=== PATIENT | female | born 1985 | race Caucasian/White ===

== ENCOUNTER 2016-09-28 09:25 | Emergency (ER) | payer OTHER ==
[~2016-09-28] VITALS: Ht 182.9 cm; Wt 154.5 kg
[~2016-09-28 09:25] MED LIST: HYDR-3240 PO; HYDR-3241 PO; IBUP200T48 PO; IBUP200T64 PO; MELA5TAB PO
[2016-09-28 09:31] VITALS: BP 157/88
[2016-09-28] MEDS ORDERED: ASPIRIN 81 MG TABLET CHEW ONE (10:16)
[2016-09-28] MEDS ORDERED: KETOROLAC 30 MG/1 ML ONE (10:16)
[2016-09-28 10:25] LABS: BLOOD UREA NITROGEN 11 mg/dL (7-18)
[2016-09-28 10:30] LABS: IS PT STATUS REG ER OR PRE ER? YES
[2016-09-28] MEDS ORDERED: ASPIRIN 81 MG TABLET CHEW PO ONE (10:30)
[2016-09-28] MEDS ORDERED: KETOROLAC 30 MG/1 ML IM ONE (10:30)
== END 2016-09-28 12:57 | disposition home or self-care (01) ==
LOC: ED 12:06
DX: R07.89 Other chest pain (principal); I10 Essential (primary) hypertension; Z90.89 Acquired absence of other organs; Z90.49 Acquired absence of other specified parts of digestive tract
CPT/HCPCS: 36415; 71010; 80048; 82040; 82550; 84484; 85025; 93005; 96372; 99285; J1885

== ENCOUNTER 2016-11-10 12:23 | Emergency (ER) | payer OTHER ==
[~2016-11-10] VITALS: Ht 182.9 cm; Wt 157.2 kg
[2016-11-10 12:47] VITALS: BP 158/84
[2016-11-10] MEDS ORDERED: HYDROmorphone 1 MG/ML, 1ML IM PRN (14:30)
[2016-11-10 14:46] LABS: HCG UR OBC PASS
[2016-11-10] MEDS ORDERED: HYDROmorphone 1 MG/ML, 1ML ONE (14:57)
[2016-11-10] MEDS ORDERED: ONDANSETRON ODT 4 MG ONE (15:19)
[2016-11-10] MEDS ORDERED: ONDANSETRON ODT 4 MG PO PRN (15:30)
[2016-11-10] MEDS ORDERED: CEFDINIR 300 MG CAPSULE PO ONE (16:00)
== END 2016-11-10 17:05 | disposition home or self-care (01) ==
LOC: ED 15:36
DX: N80.9 Endometriosis, unspecified (principal); I11.9 Hypertensive heart disease without heart failure; I51.7 Cardiomegaly; D25.9 Leiomyoma of uterus, unspecified; Z90.49 Acquired absence of other specified parts of digestive tract
CPT/HCPCS: 81001; 81025; 87086; 93005; 96372; 99285; J1170; Q0162

== ENCOUNTER 2016-12-12 18:10 | Emergency (ER) | payer OTHER ==
[~2016-12-12] VITALS: Ht 185.4 cm; Wt 147.0 kg
[~2016-12-12 18:10] MED LIST changes: -MELA5TAB PO; +MELA5TAB19 PO
[2016-12-12] MEDS ORDERED: SODIUM CHLORIDE 0.9% 1,000ML IVBOLUS ONE (18:30)
[2016-12-12] MEDS ORDERED: ONDANSETRON 2MG/ML, 2ML IVPush ONE (18:30)
[2016-12-12] MEDS ORDERED: SODIUM CHLORIDE FLUSH 10ML SYR IVF ONE (18:30)
[2016-12-12] MEDS ORDERED: ESCI10TA10 PO (18:49)
[2016-12-12] MEDS ORDERED: PHEN37.53 PO (18:49)
[2016-12-12] MEDS ORDERED: MORPHINE SULFATE 4 MG/ML, 1ML ONE ×2 (19:03→21:47)
[2016-12-12] MEDS ORDERED: ONDANSETRON 2MG/ML, 2ML ONE (19:03)
[2016-12-12] MEDS: MORPHINE SULFATE 4 MG/ML, 1ML IVPush PRN ×2 (19:06→21:48)
[2016-12-12 19:18] LABS: ASPARTATE AMINO TRANSFERASE 110 U/L (15-37); BLOOD UREA NITROGEN 8 mg/dL (7-18)
[2016-12-12] MEDS ORDERED: OMNIPAQUE 350 MG/ML, 100ML BOTTLE ONE (21:19)
[2016-12-12 21:45] VITALS: BP 177/85
== END 2016-12-12 22:32 | disposition home or self-care (01) ==
LOC: ED 22:00
DX: R10.31 Right lower quadrant pain (principal); I10 Essential (primary) hypertension; Z90.49 Acquired absence of other specified parts of digestive tract
CPT/HCPCS: 36415; 74176; 74177; 76830; 80053; 81001; 84703; 85025; 87086; 96361; 96374; 96375; 96376; 99285; J2405; J7030; Q9967

== ENCOUNTER 2016-12-14 09:18 | Emergency (ER) | payer OTHER ==
[~2016-12-14] VITALS: Ht 182.9 cm; Wt 147.0 kg
[~2016-12-14 09:18] MED LIST changes: +ESCI10TA10 PO; +PHEN37.53 PO
[2016-12-14] MEDS ORDERED: ONDANSETRON 2MG/ML, 2ML ONE (10:22)
[2016-12-14] MEDS ORDERED: MORPHINE SULFATE 4 MG/ML, 1ML ONE (10:22)
[2016-12-14] MEDS ORDERED: MORPHINE SULFATE 4 MG/ML, 1ML IVPush PRN (10:30)
[2016-12-14] MEDS ORDERED: ONDANSETRON 2MG/ML, 2ML IVPush ONE (10:30)
[2016-12-14] MEDS ORDERED: SODIUM CHLORIDE 0.9% 1,000ML IVBOLUS ONE (10:30)
[2016-12-14 10:48] LABS: ASPARTATE AMINO TRANSFERASE 142 U/L (15-37); BLOOD UREA NITROGEN 11 mg/dL (7-18)
[2016-12-14 11:41] LABS: HCG UR OBC PASS
[2016-12-14 12:13] VITALS: BP 147/68
== END 2016-12-14 12:16 | disposition home or self-care (01) ==
LOC: ED 10:08
DX: R10.31 Right lower quadrant pain (principal); R11.2 Nausea with vomiting, unspecified; R19.7 Diarrhea, unspecified; E66.01 Morbid (severe) obesity due to excess calories; Z90.49 Acquired absence of other specified parts of digestive tract
CPT/HCPCS: 36415; 80053; 81001; 81025; 83690; 85025; 87086; 96361; 96374; 96375; 99285; J2405; J7030

== ENCOUNTER → 2016-12-21 | Outpatient (CLI) | payer OTHER | LOC: STAR 13:29 | PROVIDERS: ATTEND Obstetrics & Gynecology | DX: Z02.9 Encounter for administrative examinations, unspecified (principal) ==

== ENCOUNTER 2017-01-01 06:02 | Inpatient (IN) | payer OTHER ==
[~2017-01-01] VITALS: Ht 182.9 cm; Wt 160.8 kg
[2017-01-01] MEDS ORDERED: LACTATED RINGERS 1,000 ML IV SCH (06:39)
[2017-01-01 06:42] VITALS: BP 147/91
[2017-01-01 07:00] LABS: HCG UR OBC PASS
[2017-01-01] MEDS ORDERED: LIDOCAINE 1%, 2ML SQ PRN (07:00)
[2017-01-01] MEDS ORDERED: KETAMINE 10 MG/ML, 20ML ONE (07:18)
[2017-01-01] MEDS ORDERED: FENTANYL PF 250 MCG/5ML ONE (07:19)
[2017-01-01] MEDS ORDERED: HEPARIN 5,000 UNITS/ML, 1ML SQ STA (07:23)
[2017-01-01] MEDS ORDERED: HEPARIN 5,000 UNITS/ML, 1ML ONE (07:26)
[2017-01-01] MEDS ORDERED: DEXAMETHASONE 4 MG/ML, 1ML ONE (07:37)
[2017-01-01] MEDS ORDERED: SUCCINYLCHOLINE 20 MG/ML, 10ML ONE (07:37)
[2017-01-01] MEDS ORDERED: ONDANSETRON 2MG/ML, 2ML ONE (07:37)
[2017-01-01] MEDS ORDERED: PROPOFOL 10 MG/ML, 20ML ONE (07:37)
[2017-01-01] MEDS ORDERED: KETOROLAC 30 MG/1 ML ONE (07:37)
[2017-01-01] MEDS ORDERED: ROCURONIUM 10 MG/ML ONE (07:37)
[2017-01-01] MEDS ORDERED: CEFAZOLIN 1,000 MG ONE (07:37)
[2017-01-01] MEDS ORDERED: SUGAMMADEX 200 MG/2 ML IVPush ONE (08:30)
[2017-01-01] MEDS ORDERED: FENTANYL PF 100 MCG/2ML ONE ×2 (09:35→10:42)
[2017-01-01] MEDS ORDERED: HYDROmorphone 1 MG/ML, 1ML IV PRN (10:00)
[2017-01-01] MEDS ORDERED: MEPERIDINE/PF 25MG/0.5ML IVPush PRN (10:00)
[2017-01-01] MEDS ORDERED: hydrALAzine 20 MG/ML, 1ML IV PRN (10:00)
[2017-01-01] MEDS ORDERED: OXYcodone 5 MG/5 ML ORAL.SOL UDC PO PRN (10:00)
[2017-01-01] MEDS ORDERED: LABETALOL 5MG/ML, 20ML IV PRN (10:00)
[2017-01-01] MEDS ORDERED: PROMETHAZINE 25 MG/ML, 1ML IV PRN (10:00)
[2017-01-01] MEDS ORDERED: LABETALOL 5MG/ML, 20ML ONE (10:21)
[2017-01-01] MEDS ORDERED: OXYcodone 5 MG/5 ML ORAL.SOL UDC ONE (10:22)
[2017-01-01] MEDS ORDERED: NYSTATIN TOPICAL POWDER 15GM TP PRN (10:30)
[2017-01-01] MEDS: FENTANYL PF 100 MCG/2ML IV PRN ×3 (10:43→11:14)
[2017-01-01] MEDS ORDERED: hydrALAzine 20 MG/ML, 1ML ONE (10:51)
[2017-01-01] MEDS ORDERED: MEPERIDINE/PF 25MG/0.5ML ONE (11:32)
[2017-01-01] MEDS ORDERED: PROMETHAZINE 25 MG/ML, 1ML ONE (11:55)
[2017-01-01] MEDS ORDERED: ONDANSETRON 2MG/ML, 2ML IV PRN (13:00)
[2017-01-01] MEDS ORDERED: POTASSIUM CHLORIDE 20 MEQ in D5%-0.45% NACL 1,000 ML IV SCH (13:00)
[2017-01-01] MEDS ORDERED: INSTRUCTION SEE COMMENTS XX PRN (13:00)
[2017-01-01] MEDS ORDERED: KETOROLAC 30 MG/1 ML IV PRN (15:00)
[2017-01-01 15:30] VITALS: BP 124/53
[2017-01-01] MEDS: POTASSIUM CHLORIDE 20 MEQ in D5%-0.45% NACL 1,000 ML IV SCH ×2 (15:33→21:57)
[2017-01-01] MEDS: IBUPROFEN 600 MG TABLET PO SCH ×2 (15:35→21:01)
[2017-01-01] MEDS: SIMETHICONE 80 MG CHEW TAB PO SCH ×2 (15:35→21:01)
[2017-01-01 18:38] VITALS: BP 120/81
[2017-01-01] MEDS ORDERED: DOCUSATE 100 MG CAPSULE PO SCH (21:00)
[2017-01-01] MEDS: SENNA/DOCUSATE TABLET PO SCH (21:02)
[2017-01-01] MEDS: DOCUSATE 100 MG CAPSULE PO SCH (21:02)
[2017-01-01] MEDS: HEPARIN 5,000 UNITS/ML, 1ML SQ SCH (21:02)
[2017-01-02 00:10] VITALS: BP 101/53
[2017-01-02] MEDS: POTASSIUM CHLORIDE 20 MEQ in D5%-0.45% NACL 1,000 ML IV SCH ×4 (03:55→22:31)
[2017-01-02 04:00] VITALS: BP 90/57
[2017-01-02] MEDS: IBUPROFEN 600 MG TABLET PO SCH ×4 (05:31→20:31)
[2017-01-02] MEDS: HEPARIN 5,000 UNITS/ML, 1ML SQ SCH ×3 (05:31→20:30)
[2017-01-02 05:57] LABS: HEMATOCRIT 38.2 % (34.6-47.8); HEMOGLOBIN 12.4 g/dL (11.7-16.4)
[2017-01-02 06:11] LABS: BLOOD UREA NITROGEN 22 mg/dL (7-18)
[2017-01-02 06:16] LABS: ASPARTATE AMINO TRANSFERASE 62 U/L (15-37)
[2017-01-02] MEDS ORDERED: SODIUM CHLORIDE 0.9% 1,000ML IVBOLUS ONE (07:00)
[2017-01-02 07:31] VITALS: BP 119/78
[2017-01-02] MEDS: OXYcodone 5 MG/5 ML ORAL.SOL UDC PO PRN ×4 (09:06→22:35)
[2017-01-02] MEDS: SIMETHICONE 80 MG CHEW TAB PO SCH ×3 (09:06→20:31)
[2017-01-02] MEDS: DOCUSATE 100 MG CAPSULE PO SCH ×2 (09:07→20:31)
[2017-01-02 12:31] VITALS: BP 126/76
[2017-01-02] MEDS ORDERED: POTASSIUM CHLORIDE 20 MEQ in D5%-0.45% NACL 1,000 ML IV SCH (13:00)
[2017-01-02 19:07] VITALS: BP 110/69
[2017-01-02] MEDS: DIPHENHYDRAMINE 50 MG CAPSULE PO PRN (20:30)
[2017-01-02] MEDS: SENNA/DOCUSATE TABLET PO SCH (20:31)
[2017-01-03 01:11] VITALS: BP 128/75
[2017-01-03] MEDS: IBUPROFEN 600 MG TABLET PO SCH ×4 (05:51→20:42)
[2017-01-03] MEDS: HEPARIN 5,000 UNITS/ML, 1ML SQ SCH ×3 (05:51→20:42)
[2017-01-03 06:57] VITALS: BP 115/62
[2017-01-03 06:58] LABS: ASPARTATE AMINO TRANSFERASE 31 U/L (15-37); BLOOD UREA NITROGEN 16 mg/dL (7-18)
[2017-01-03] MEDS: POTASSIUM CHLORIDE 20 MEQ in D5%-0.45% NACL 1,000 ML IV SCH ×4 (07:55→23:47)
[2017-01-03] MEDS: OXYcodone 5 MG/5 ML ORAL.SOL UDC PO PRN ×3 (08:08→17:51)
[2017-01-03] MEDS: SIMETHICONE 80 MG CHEW TAB PO SCH ×3 (08:08→20:42)
[2017-01-03] MEDS: DOCUSATE 100 MG CAPSULE PO SCH ×2 (08:08→20:42)
[2017-01-03] MEDS: DIPHENHYDRAMINE 50 MG CAPSULE PO PRN (11:18)
[2017-01-03 13:52] VITALS: BP 128/71
[2017-01-03 18:40] VITALS: BP 127/66
[2017-01-03] MEDS: SENNA/DOCUSATE TABLET PO SCH (20:42)
[2017-01-04 01:15] VITALS: BP 122/64
[2017-01-04] MEDS: HEPARIN 5,000 UNITS/ML, 1ML SQ SCH (05:36)
[2017-01-04] MEDS: IBUPROFEN 600 MG TABLET PO SCH (05:37)
[2017-01-04 07:06] VITALS: BP 114/76
[2017-01-04] MEDS: OXYcodone 5 MG/5 ML ORAL.SOL UDC PO PRN (08:44)
[2017-01-04] MEDS ORDERED: OXYC10TA6 PO (08:44)
[2017-01-04] MEDS ORDERED: IBUP200T48 PO (08:45)
[2017-01-04] MEDS: SIMETHICONE 80 MG CHEW TAB PO SCH (08:46)
[2017-01-04] MEDS: DOCUSATE 100 MG CAPSULE PO SCH (08:46)
== END 2017-01-04 09:55 | disposition home or self-care (01) | DRG 742 ==
LOC: OUT 06:02 → 4NOR 12:26 → OUT 12:32 → 4NOR 12:32 → DCLOUNGE 01-04 09:39
PROVIDERS: ADMIT Obstetrics & Gynecology; ATTEND Obstetrics & Gynecology
PROC: 0UTC0ZZ Resection of Cervix, Open Approach (ICD-10-PCS; 2017-01-01)
PROC: 0UT00ZZ Resection of Right Ovary, Open Approach (ICD-10-PCS; 2017-01-01)
PROC: 0UT60ZZ Resection of Left Fallopian Tube, Open Approach (ICD-10-PCS; 2017-01-01)
PROC: 0UT90ZZ Resection of Uterus, Open Approach (ICD-10-PCS; principal; 2017-01-01 07:30)
DX: N80.0 Endometriosis of uterus (principal); Z68.42 Body mass index [BMI] 45.0-49.9, adult; N80.1 Endometriosis of ovary; E28.2 Polycystic ovarian syndrome; E66.01 Morbid (severe) obesity due to excess calories; I10 Essential (primary) hypertension; K76.0 Fatty (change of) liver, not elsewhere classified; Z87.440 Personal history of urinary (tract) infections; F32.9 Major depressive disorder, single episode, unspecified; R94.5 Abnormal results of liver function studies; Z90.49 Acquired absence of other specified parts of digestive tract
CPT/HCPCS: 36415; 80053; 81025; 85014; 85018; 86850; 86900; 86923; 88302; 88305; 88307; 93005; J0690; J1100; J1644; J1885; J2175; J2270; J2405; J2550; J2704; J3010; J3480; J3490; J0330; J0360; J7030; J7120

== ENCOUNTER 2017-01-30 12:49 | Inpatient (IN) | payer OTHER ==
[~2017-01-30] VITALS: Ht 182.9 cm; Wt 153.7 kg
[~2017-01-30 12:49] MED LIST changes: -AMOX1TAB64 PO; -OMNIPAQUE 350 MG/ML, 150 ML BOTTLE ONE
[2017-01-30 13:35] VITALS: BP 139/87
[2017-01-30] MEDS: morphine SULFATE 10 MG/ML, 1ML IVPush PRN (13:52)
[2017-01-30] MEDS ORDERED: PLEASE ENTER HEIGHT AND WEIGHT MC SCH ×2 (14:00→14:30)
[2017-01-30] MEDS ORDERED: PHARMACOKINETIC MONITORING MC PRN (14:30)
[2017-01-30] MEDS ORDERED: PHARMACOKINETIC CONSULTATION MC ONE (14:30)
[2017-01-30] MEDS ORDERED: GENTAMICIN PER PHARMACY MC PRN (14:30)
[2017-01-30] MEDS: D5%-0.9% NACL+KCL 20MEQ 1,000 ML IV SCH ×2 (14:44→21:29)
[2017-01-30] MEDS: AMPICILLIN 2 GM in SODIUM CHLORIDE 0.9% 100 ML IV SCH ×2 (14:44→21:28)
[2017-01-30 14:57] LABS: BLOOD UREA NITROGEN 13 mg/dL (7-18)
[2017-01-30 14:58] LABS: HEMATOCRIT 42.1 % (34.6-47.8); HEMOGLOBIN 13.7 g/dL (11.7-16.4); WHITE BLOOD COUNT 11.1 x10^3/uL (3.4-10)
[2017-01-30 15:00] LABS: ASPARTATE AMINO TRANSFERASE 48 U/L (15-37)
[2017-01-30] MEDS: CLINDAMYCIN PMX 900MG/50ML 50 ML IV SCH ×2 (15:53→23:09)
[2017-01-30] MEDS: OXYcodone IR 5MG TABLET PO PRN ×2 (15:53→20:48)
[2017-01-30] MEDS: GENTAMICIN 500 MG in SODIUM CHLORIDE 0.9% 100 ML IV SCH (17:30)
[2017-01-30] MEDS ORDERED: ONDANSETRON 2MG/ML, 2ML IVPush PRN (17:30)
[2017-01-30 19:01] VITALS: BP 141/90
[2017-01-30] MEDS: CEFTRIAXONE PMX 1GM/50ML 50 ML IV SCH (20:47)
[2017-01-30 22:44] VITALS: BP 149/82
[2017-01-30] MEDS: ZOLPIDEM 10MG TABLET PO PRN (22:44)
[2017-01-31 00:42] VITALS: BP 135/82
[2017-01-31] MEDS: morphine SULFATE 10 MG/ML, 1ML IVPush PRN ×4 (00:51→17:42)
[2017-01-31] MEDS: AMPICILLIN 2 GM in SODIUM CHLORIDE 0.9% 100 ML IV SCH ×3 (03:01→14:37)
[2017-01-31 05:11] LABS: HEMATOCRIT 37.9 % (34.6-47.8); HEMOGLOBIN 12.3 g/dL (11.7-16.4); WHITE BLOOD COUNT 10.5 x10^3/uL (3.4-10)
[2017-01-31] MEDS: CLINDAMYCIN PMX 900MG/50ML 50 ML IV SCH ×2 (06:46→17:42)
[2017-01-31] MEDS ORDERED: MIDAZOLAM 1 MG/ML, 5ML ONE (07:31)
[2017-01-31] MEDS ORDERED: NALOXONE 1 MG/ML, 2ML ONE (07:31)
[2017-01-31] MEDS ORDERED: FENTANYL PF 100 MCG/2ML ONE ×3 (07:31→18:34)
[2017-01-31] MEDS ORDERED: FLUMAZENIL 0.1 MG/1 ML, 5ML ONE (07:32)
[2017-01-31] MEDS ORDERED: LIDOCAINE 2%, 20ML ONE (07:39)
[2017-01-31 08:20] VITALS: BP 141/85
[2017-01-31] MEDS: CITALOPRAM 20 MG TABLET PO SCH (09:29)
[2017-01-31] MEDS: D5%-0.9% NACL+KCL 20MEQ 1,000 ML IV SCH (11:16)
[2017-01-31] MEDS ORDERED: EPINEPHRINE 1 MG/ML, 1ML ONE (14:06)
[2017-01-31] MEDS ORDERED: BUPIVACAINE/PF 0.25% ONE (14:06)
[2017-01-31 14:30] VITALS: BP 127/73
[2017-01-31] MEDS ORDERED: MIDAZOLAM 1 MG/ML, 2ML ONE (18:34)
[2017-01-31] MEDS ORDERED: PROPOFOL 10 MG/ML, 50ML ONE (19:02)
[2017-01-31] MEDS ORDERED: ONDANSETRON 2MG/ML, 2ML ONE (19:02)
[2017-01-31] MEDS ORDERED: KETOROLAC 30 MG/1 ML ONE (19:02)
[2017-01-31] MEDS ORDERED: DEXAMETHASONE 4 MG/ML, 1ML ONE (19:02)
[2017-01-31] MEDS ORDERED: EPHEDRINE 50 MG/ML, 1ML IVPush PRN (20:30)
[2017-01-31] MEDS ORDERED: MIDAZOLAM 1 MG/ML, 2ML IV PRN (20:30)
[2017-01-31] MEDS ORDERED: HYDROcodone/APAP 7.5-325MG/15ML UDC PO PRN (20:30)
[2017-01-31] MEDS ORDERED: ONDANSETRON 2MG/ML, 2ML IVPush PRN (20:30)
[2017-01-31] MEDS ORDERED: METOPROLOL 1 MG/ML, 5ML IV PRN (20:30)
[2017-01-31] MEDS ORDERED: FENTANYL PF 100 MCG/2ML IV PRN (20:30)
[2017-01-31] MEDS ORDERED: hydrALAzine 20 MG/ML, 1ML IV PRN (20:30)
[2017-01-31] MEDS ORDERED: PROMETHAZINE 25 MG/ML, 1ML IV PRN (20:30)
[2017-01-31] MEDS ORDERED: OXYcodone 5 MG/5 ML ORAL.SOL UDC PO PRN (20:30)
[2017-01-31] MEDS ORDERED: MEPERIDINE/PF 25MG/0.5ML IVPush PRN (20:30)
[2017-01-31] MEDS ORDERED: HYDROmorphone 1 MG/ML, 1ML IV PRN (20:30)
[2017-01-31] MEDS ORDERED: ALBUTEROL SULFATE 2.5 MG/3 ML NPPB PRN (20:30)
[2017-01-31] MEDS ORDERED: ACETAMINOPHEN 650 MG/20.3 ML UDC ONE (20:42)
[2017-01-31] MEDS ORDERED: ACETAMINOPHEN 325 MG TABLET ONE (20:42)
[2017-01-31] MEDS: LABETALOL 5MG/ML, 20ML IV PRN ×2 (20:45→21:02)
[2017-01-31] MEDS: ACETAMINOPHEN 325 MG TABLET PO PRN ×2 (20:45→20:49)
[2017-01-31] MEDS ORDERED: ZOLPIDEM 5MG TABLET PO PRN (21:00)
[2017-01-31 21:30] VITALS: BP 145/87
[2017-01-31] MEDS: GENTAMICIN 500 MG in SODIUM CHLORIDE 0.9% 100 ML IV SCH (22:10)
[2017-01-31] MEDS: POTASSIUM CHLORIDE 20 MEQ in D5%-0.45% NACL 1,000 ML IV SCH (22:30)
[2017-01-31] MEDS ORDERED: morphine SULFATE 10 MG/ML, 1ML IV PRN (22:30)
[2017-01-31] MEDS ORDERED: ONDANSETRON 2MG/ML, 2ML IV PRN (22:30)
[2017-01-31] MEDS: CEFTRIAXONE PMX 1GM/50ML 50 ML IV SCH (23:30)
[2017-01-31] MEDS: DOCUSATE 100 MG CAPSULE PO SCH (23:31)
[2017-01-31] MEDS: SENNA/DOCUSATE TABLET PO SCH (23:32)
[2017-01-31 23:47] VITALS: BP 111/65
[2017-01-31] MEDS: OXYcodone 5 MG/5 ML ORAL.SOL UDC PO PRN (23:57)
[2017-02-01] MEDS: PIPERACILLIN/TAZO/PMX 3.375GM 50 ML IV SCH ×4 (01:34→19:41)
[2017-02-01] MEDS: CLINDAMYCIN PMX 900MG/50ML 50 ML IV SCH ×3 (02:28→18:33)
[2017-02-01 03:53] VITALS: BP 128/78
[2017-02-01] MEDS: OXYcodone 5 MG/5 ML ORAL.SOL UDC PO PRN (04:02)
[2017-02-01] MEDS: POTASSIUM CHLORIDE 20 MEQ in D5%-0.45% NACL 1,000 ML IV SCH ×3 (05:14→19:42)
[2017-02-01 05:29] LABS: HEMATOCRIT 38.7 % (34.6-47.8); HEMOGLOBIN 12.6 g/dL (11.7-16.4); WHITE BLOOD COUNT 12.6 x10^3/uL (3.4-10)
[2017-02-01 05:30] LABS: BLOOD UREA NITROGEN 13 mg/dL (7-18)
[2017-02-01] MEDS: IBUPROFEN 600 MG TABLET PO SCH ×4 (06:11→21:56)
[2017-02-01 08:00] VITALS: BP 143/84
[2017-02-01] MEDS: CITALOPRAM 20 MG TABLET PO SCH (08:05)
[2017-02-01] MEDS: DOCUSATE 100 MG CAPSULE PO SCH ×2 (08:12→19:42)
[2017-02-01] MEDS: SIMETHICONE 80 MG CHEW TAB PO SCH ×3 (08:12→19:43)
[2017-02-01] MEDS: OXYcodone IR 5MG TABLET PO PRN (12:35)
[2017-02-01 14:22] VITALS: BP 122/68
[2017-02-01 18:59] VITALS: BP 147/82
[2017-02-01] MEDS: SENNA/DOCUSATE TABLET PO SCH (19:43)
[2017-02-01] MEDS: GENTAMICIN 500 MG in SODIUM CHLORIDE 0.9% 100 ML IV SCH (21:56)
[2017-02-02 01:14] VITALS: BP 133/87
[2017-02-02] MEDS: POTASSIUM CHLORIDE 20 MEQ in D5%-0.45% NACL 1,000 ML IV SCH ×4 (01:26→21:38)
[2017-02-02] MEDS: PIPERACILLIN/TAZO/PMX 3.375GM 50 ML IV SCH ×4 (01:41→20:36)
[2017-02-02] MEDS: CLINDAMYCIN PMX 900MG/50ML 50 ML IV SCH ×3 (03:37→19:18)
[2017-02-02] MEDS: IBUPROFEN 600 MG TABLET PO SCH ×4 (05:05→23:27)
[2017-02-02] MEDS: OXYcodone IR 5MG TABLET PO PRN ×2 (05:17→06:36)
[2017-02-02 05:28] LABS: HEMOGLOBIN 11.7 g/dL (11.7-16.4); WHITE BLOOD COUNT 10.6 x10^3/uL (3.4-10)
[2017-02-02 06:34] VITALS: BP 131/82
[2017-02-02] MEDS: DOCUSATE 100 MG CAPSULE PO SCH ×2 (08:17→20:37)
[2017-02-02] MEDS: CITALOPRAM 20 MG TABLET PO SCH (08:17)
[2017-02-02] MEDS: SIMETHICONE 80 MG CHEW TAB PO SCH ×3 (08:18→20:37)
[2017-02-02 14:07] VITALS: BP 135/81
[2017-02-02] MEDS: L. ACIDOPHILUS/B. ANIMALIS/FOS PACKET PO SCH ×2 (15:18→20:37)
[2017-02-02 19:19] VITALS: BP 145/83
[2017-02-02] MEDS: SENNA/DOCUSATE TABLET PO SCH (21:00)
[2017-02-02] MEDS: GENTAMICIN 500 MG in SODIUM CHLORIDE 0.9% 100 ML IV SCH (23:21)
[2017-02-02] MEDS: ZOLPIDEM 10MG TABLET PO PRN (23:21)
[2017-02-03 02:52] VITALS: BP 137/80
[2017-02-03] MEDS: PIPERACILLIN/TAZO/PMX 3.375GM 50 ML IV SCH ×2 (02:52→08:03)
[2017-02-03] MEDS: POTASSIUM CHLORIDE 20 MEQ in D5%-0.45% NACL 1,000 ML IV SCH ×2 (03:49→08:14)
[2017-02-03] MEDS: CLINDAMYCIN PMX 900MG/50ML 50 ML IV SCH ×2 (03:49→11:50)
[2017-02-03] MEDS: IBUPROFEN 600 MG TABLET PO SCH ×2 (06:45→11:52)
[2017-02-03 06:49] VITALS: BP 137/79
[2017-02-03] MEDS: DOCUSATE 100 MG CAPSULE PO SCH (08:02)
[2017-02-03] MEDS: CITALOPRAM 20 MG TABLET PO SCH (08:02)
[2017-02-03] MEDS: L. ACIDOPHILUS/B. ANIMALIS/FOS PACKET PO SCH (08:02)
[2017-02-03] MEDS: SIMETHICONE 80 MG CHEW TAB PO SCH (08:06)
[2017-02-03 11:53] VITALS: BP 149/85
[2017-02-03] MEDS ORDERED: AMOX1TAB64 PO (12:11)
== END 2017-02-03 12:35 | disposition home or self-care (01) | DRG 760 ==
LOC: 4NOR 12:49
PROVIDERS: ADMIT Obstetrics & Gynecology; ATTEND Obstetrics & Gynecology
PROC: 0UCGXZZ Extirpation of Matter from Vagina, External Approach (ICD-10-PCS; principal; 2017-01-31 17:30)
DX: N89.8 Other specified noninflammatory disorders of vagina (principal); Z68.42 Body mass index [BMI] 45.0-49.9, adult; K76.0 Fatty (change of) liver, not elsewhere classified; E66.01 Morbid (severe) obesity due to excess calories; N93.9 Abnormal uterine and vaginal bleeding, unspecified; J20.9 Acute bronchitis, unspecified; I10 Essential (primary) hypertension; F32.9 Major depressive disorder, single episode, unspecified; Z90.710 Acquired absence of both cervix and uterus; Z87.440 Personal history of urinary (tract) infections
CPT/HCPCS: 10160; 36415; 71020; 75989; 80048; 80053; 80170; 83735; 85025; 87040; 87070; 87075; 87205; 93970; 99156; 99157; J0171; J0290; J0696; J1100; J1885; J2250; J2405; J2543; J2704; J3010; J3490; C1769; J1580; J2270; J2310; J3480

== ENCOUNTER → 2017-01-30 | Outpatient (CLI) | payer OTHER ==
[~2017-01-30] MED LIST changes: +AMOX1TAB64 PO; +OMNIPAQUE 350 MG/ML, 150 ML BOTTLE ONE; +OXYC10TA6 PO
== END | disposition home or self-care (01) ==
LOC: CFH 10:08
PROVIDERS: ATTEND Obstetrics & Gynecology
DX: N73.9 Female pelvic inflammatory disease, unspecified (principal); K42.9 Umbilical hernia without obstruction or gangrene; K76.0 Fatty (change of) liver, not elsewhere classified; R16.0 Hepatomegaly, not elsewhere classified; J18.9 Pneumonia, unspecified organism; R91.8 Other nonspecific abnormal finding of lung field; Z90.710 Acquired absence of both cervix and uterus; Z98.890 Other specified postprocedural states; Z90.49 Acquired absence of other specified parts of digestive tract
CPT/HCPCS: 74177; Q9967

== ENCOUNTER 2017-02-26 12:56 | Emergency (ER) | payer OTHER ==
[~2017-02-26] VITALS: Ht 182.9 cm; Wt 151.9 kg
[~2017-02-26 12:56] MED LIST changes: +AMOX1TAB64 PO
[2017-02-26] MEDS ORDERED: SODIUM CHLORIDE FLUSH 10ML SYR IVF ONE (13:30)
[2017-02-26] MEDS ORDERED: SODIUM CHLORIDE 0.9% 1,000 ML IV ONE (13:30)
[2017-02-26] MEDS ORDERED: SODIUM CHLORIDE 0.9% 1,000ML IVBOLUS ONE (13:30)
[2017-02-26 13:45] LABS: HEMATOCRIT 45.5 % (34.6-47.8); HEMOGLOBIN 14.9 g/dL (11.7-16.4); WHITE BLOOD COUNT 9.6 x10^3/uL (3.4-10)
[2017-02-26 13:55] LABS: BLOOD UREA NITROGEN 14 mg/dL (7-18)
[2017-02-26 13:59] LABS: PATH.CAST-FLAG NOT PRESENT; SPERM-FLAG NOT PRESENT; SRC-FLAG NOT PRESENT; XTAL-FLAG NOT PRESENT; YLC-FLAG NOT PRESENT
[2017-02-26] MEDS ORDERED: KETOROLAC 30 MG/1 ML ONE (14:09)
[2017-02-26] MEDS ORDERED: KETOROLAC 30 MG/1 ML IVPush ONE (14:30)
[2017-02-26] MEDS ORDERED: MORPHINE SULFATE 4 MG/ML, 1ML ONE ×2 (15:22→16:35)
[2017-02-26] MEDS: MORPHINE SULFATE 4 MG/ML, 1ML IVPush PRN ×2 (15:31→16:37)
[2017-02-26] MEDS ORDERED: OMNIPAQUE 350 MG/ML, 100ML BOTTLE ONE (16:19)
[2017-02-26] MEDS ORDERED: ONDANSETRON 2MG/ML, 2ML ONE (16:35)
[2017-02-26] MEDS ORDERED: ONDANSETRON 2MG/ML, 2ML IVPush ONE (17:00)
[2017-02-26 17:25] VITALS: BP 133/82
== END 2017-02-26 18:08 | disposition home or self-care (01) ==
LOC: ED 13:41
DX: N30.00 Acute cystitis without hematuria (principal); I10 Essential (primary) hypertension; Z90.49 Acquired absence of other specified parts of digestive tract; Z90.710 Acquired absence of both cervix and uterus
CPT/HCPCS: 36415; 74177; 80048; 81001; 82040; 85025; 87086; 96361; 96374; 96375; 96376; 99285; J1885; J2405; J7030; Q9967

== ENCOUNTER 2017-03-18 10:55 | Emergency (ER) | payer OTHER ==
[~2017-03-18] VITALS: Ht 182.9 cm; Wt 157.4 kg
[2017-03-18] MEDS ORDERED: SODIUM CHLORIDE 0.9% 1,000ML IVBOLUS ONE (11:30)
[2017-03-18] MEDS ORDERED: MORPHINE SULFATE 4 MG/ML, 1ML IVPush PRN (11:30)
[2017-03-18] MEDS ORDERED: ONDANSETRON 2MG/ML, 2ML IVPush ONE (11:30)
[2017-03-18] MEDS ORDERED: SODIUM CHLORIDE FLUSH 10ML SYR IVF ONE (11:30)
[2017-03-18] MEDS ORDERED: morphine SULFATE 10 MG/ML, 1ML ONE (11:52)
[2017-03-18] MEDS ORDERED: ONDANSETRON 2MG/ML, 2ML ONE (11:53)
[2017-03-18 12:05] LABS: HEMATOCRIT 43.5 % (34.6-47.8); HEMOGLOBIN 14.2 g/dL (11.7-16.4); WHITE BLOOD COUNT 6.5 x10^3/uL (3.4-10)
[2017-03-18 12:19] LABS: BLOOD UREA NITROGEN 8 mg/dL (7-18)
[2017-03-18 12:26] LABS: ASPARTATE AMINO TRANSFERASE 76 U/L (15-37)
[2017-03-18 12:33] VITALS: BP 127/74
[2017-03-18] MEDS ORDERED: OMNIPAQUE 350 MG/ML, 150 ML BOTTLE ONE (13:36)
== END 2017-03-18 14:41 | disposition home or self-care (01) ==
LOC: ED 12:17
DX: R10.11 Right upper quadrant pain (principal); R10.13 Epigastric pain; I10 Essential (primary) hypertension; Z90.49 Acquired absence of other specified parts of digestive tract
CPT/HCPCS: 36415; 74177; 80053; 83690; 85025; 96361; 96374; 96375; 99285; J2405; J7030; Q9967

== ENCOUNTER 2017-03-19 21:10 | Emergency (ER) | payer OTHER ==
[~2017-03-19] VITALS: Ht 182.9 cm; Wt 157.9 kg
[2017-03-19] MEDS ORDERED: ONDANSETRON 2MG/ML, 2ML ONE (21:57)
[2017-03-19] MEDS ORDERED: morphine SULFATE 10 MG/ML, 1ML ONE (21:57)
[2017-03-19] MEDS ORDERED: MORPHINE SULFATE 4 MG/ML, 1ML IVPush PRN (22:00)
[2017-03-19] MEDS ORDERED: SODIUM CHLORIDE 0.9% 1,000ML IVBOLUS ONE (22:00)
[2017-03-19] MEDS ORDERED: SODIUM CHLORIDE FLUSH 10ML SYR IVF ONE (22:00)
[2017-03-19] MEDS ORDERED: ONDANSETRON 2MG/ML, 2ML IVPush ONE (22:00)
[2017-03-19 22:30] LABS: HEMATOCRIT 42.1 % (34.6-47.8); HEMOGLOBIN 13.6 g/dL (11.7-16.4); WHITE BLOOD COUNT 7.7 x10^3/uL (3.4-10)
[2017-03-19 22:41] LABS: BLOOD UREA NITROGEN 8 mg/dL (7-18)
[2017-03-19 22:43] LABS: ASPARTATE AMINO TRANSFERASE 70 U/L (15-37)
[2017-03-20 00:34] VITALS: BP 124/62
== END 2017-03-20 00:34 | disposition home or self-care (01) ==
LOC: ED 23:19
DX: R10.11 Right upper quadrant pain (principal); R11.2 Nausea with vomiting, unspecified; I10 Essential (primary) hypertension; Z90.710 Acquired absence of both cervix and uterus; Z90.721 Acquired absence of ovaries, unilateral
CPT/HCPCS: 36415; 76700; 80053; 81001; 83690; 85025; 93005; 96361; 96374; 96375; 99285; J2405; J7030

== ENCOUNTER 2017-04-24 10:00 | Day surgery (SDC) | payer OTHER ==
[2017-04-23 09:25] LABS: PATH.CAST-FLAG NOT PRESENT; SPERM-FLAG NOT PRESENT; SRC-FLAG NOT PRESENT; XTAL-FLAG NOT PRESENT; YLC-FLAG NOT PRESENT
[~2017-04-24] VITALS: Ht 182.9 cm; Wt 159.7 kg
[2017-04-24] MEDS ORDERED: LACTATED RINGERS 1,000 ML IV SCH (10:49)
[2017-04-24] MEDS ORDERED: CIPR500T87 PO (10:51)
[2017-04-24 10:52] VITALS: BP 147/89
[2017-04-24] MEDS ORDERED: PROPOFOL 10 MG/ML, 20ML ONE (12:57)
[2017-04-24] MEDS ORDERED: FENTANYL PF 100 MCG/2ML IV PRN (13:30)
[2017-04-24] MEDS ORDERED: ONDANSETRON 2MG/ML, 2ML IVPush PRN (13:30)
[2017-04-24] MEDS ORDERED: ACETAMINOPHEN 325 MG TABLET PO PRN (13:30)
[2017-04-24] MEDS ORDERED: ALBUTEROL SULFATE 2.5 MG/3 ML NPPB PRN (13:30)
[2017-04-24] MEDS ORDERED: HYDROmorphone 1 MG/ML, 1ML IV PRN (13:30)
[2017-04-24] MEDS ORDERED: MIDAZOLAM 1 MG/ML, 2ML IV PRN (13:30)
[2017-04-24] MEDS ORDERED: MEPERIDINE/PF 25MG/0.5ML IVPush PRN (13:30)
[2017-04-24] MEDS ORDERED: OXYcodone 5 MG/5 ML ORAL.SOL UDC PO PRN (13:30)
[2017-04-24] MEDS ORDERED: hydrALAzine 20 MG/ML, 1ML IV PRN (13:30)
[2017-04-24] MEDS ORDERED: PROMETHAZINE 25 MG/ML, 1ML IV PRN (13:30)
[2017-04-24] MEDS ORDERED: LABETALOL 5MG/ML, 20ML IV PRN (13:30)
== END 2017-04-24 14:30 | disposition home or self-care (01) ==
LOC: OUT 10:00 → EDBD 13:00 → MERGE 13:00 → OUT 14:30
PROVIDERS: ATTEND Internal Medicine Gastroenterology
DX: G89.29 Other chronic pain (principal); K31.89 Other diseases of stomach and duodenum; K21.9 Gastro-esophageal reflux disease without esophagitis; E66.01 Morbid (severe) obesity due to excess calories; Z68.42 Body mass index [BMI] 45.0-49.9, adult
CPT/HCPCS: 43239; 81001; 87077; 87086; 87186; 88305; J2704; J7120

== ENCOUNTER 2017-08-11 10:30 | Emergency (ER) | payer OTHER ==
[~2017-08-11] VITALS: Ht 182.9 cm; Wt 143.0 kg
[~2017-08-11 10:30] MED LIST changes: +CIPR500T87 PO; -IBUP200T48 PO; +IBUP200T49 PO
[2017-08-11 10:38] VITALS: BP 138/74
[2017-08-11] MEDS ORDERED: OMEP-110 PO (10:50)
[2017-08-11] MEDS ORDERED: PHEN37.53 PO (10:52)
[2017-08-11] MEDS ORDERED: ONDANSETRON 2MG/ML, 2ML IVPush ONE (11:00)
[2017-08-11] MEDS ORDERED: LORazepam 2 MG/ML, 1ML IVPush ONE (11:00)
[2017-08-11] MEDS ORDERED: PLEASE ENTER HEIGHT AND WEIGHT MC SCH (11:00)
[2017-08-11] MEDS ORDERED: SODIUM CHLORIDE FLUSH 10ML SYR IVF ONE (11:00)
[2017-08-11] MEDS ORDERED: ASPIRIN 81 MG TABLET CHEW PO ONE (11:00)
[2017-08-11] MEDS ORDERED: SODIUM CHLORIDE 0.9% 1,000ML IVBOLUS ONE (11:00)
[2017-08-11] MEDS ORDERED: ASPIRIN 81 MG TABLET CHEW ONE (11:05)
[2017-08-11 11:06] LABS: BASOPHILS # (AUTO) 0.02 x10^3/uL (0-0.1); BASOPHILS % (AUTO) 0 % (0-1); EOSINOPHILS % (AUTO) 1 % (1-7); LYMPHOCYTES # (AUTO) 1.61 x10^3/uL (1-3.4); LYMPHOCYTES % (AUTO) 12 % (22-44); MD NO; MEAN CORPUSCULAR HEMOGLOBIN 26.6 pg (27.0-34.8); MEAN CORPUSCULAR HGB CONC 32.5 g/dL (32.4-35.8); MEAN CORPUSCULAR VOLUME 81.9 fL (80-100); MEAN PLATELET VOLUME 9.9 fL (7.4-10.4); MONOCYTES # (AUTO) 0.72 x10^3/uL (0.2-0.8); MONOCYTES % (AUTO) 5 % (2-9); NEUTROPHILS # (AUTO) 11.41 x10^3/uL (1.8-6.8); NEUTROPHILS % (AUTO) 82 % (42-75); PLATELET COUNT 237 x10^3/uL (130-400); RED BLOOD COUNT 5.49 x10^6/uL (3.82-5.3); RED CELL DISTRIBUTION WIDTH 14.6 % (9.6-15.2)
[2017-08-11] MEDS ORDERED: LORazepam 2 MG/ML, 1ML ONE (11:07)
[2017-08-11] MEDS ORDERED: ONDANSETRON 2MG/ML, 2ML ONE (11:09)
[2017-08-11 11:16] LABS: ALBUMIN 3.4 g/dL (3.4-5.0); ANION GAP 8 mmol/L (5-15); CALCIUM 8.5 mg/dL (8.5-10.1); CHLORIDE 111 mmol/L (98-107); CREATININE 0.65 mg/dL (0.55-1.02)
[2017-08-11 11:20] LABS: TROPONIN I < 0.015 ng/mL (0.000-0.045)
[2017-08-11 11:49] LABS: MICROSCOPIC NOT IND
[2017-08-11 11:54] LABS: CULTURE INDICATED? NO
== END 2017-08-11 12:37 | disposition home or self-care (01) ==
LOC: ED 11:40
DX: R07.89 Other chest pain (principal); F41.1 Generalized anxiety disorder; I10 Essential (primary) hypertension; Z90.710 Acquired absence of both cervix and uterus
CPT/HCPCS: 36415; 71045; 80048; 81003; 82040; 83605; 83880; 84484; 85025; 93005; 96361; 96374; 96375; 99285; J2060; J2405; J7030

== ENCOUNTER 2017-08-15 11:37 | Emergency (ER) | payer OTHER ==
[~2017-08-15] VITALS: Ht 182.9 cm; Wt 142.9 kg
[~2017-08-15 11:37] MED LIST changes: +OMEP-110 PO
[2017-08-15 11:39] VITALS: BP 137/86
[2017-08-15] MEDS ORDERED: ASPIRIN 81 MG TABLET CHEW PO ONE (12:00)
[2017-08-15 12:22] LABS: BASOPHILS # (AUTO) 0.01 x10^3/uL (0-0.1); BASOPHILS % (AUTO) 0 % (0-1); EOSINOPHILS # (AUTO) 0.12 x10^3/uL (0-0.4); EOSINOPHILS % (AUTO) 1 % (1-7); LYMPHOCYTES # (AUTO) 2.34 x10^3/uL (1-3.4); LYMPHOCYTES % (AUTO) 22 % (22-44); MD NO; MEAN CORPUSCULAR HEMOGLOBIN 26.8 pg (27.0-34.8); MEAN CORPUSCULAR HGB CONC 32.6 g/dL (32.4-35.8); MEAN PLATELET VOLUME 9.6 fL (7.4-10.4); MONOCYTES # (AUTO) 0.59 x10^3/uL (0.2-0.8); MONOCYTES % (AUTO) 5 % (2-9); NEUTROPHILS # (AUTO) 7.83 x10^3/uL (1.8-6.8); NEUTROPHILS % (AUTO) 72 % (42-75); PLATELET COUNT 285 x10^3/uL (130-400); RED BLOOD COUNT 6.14 x10^6/uL (3.82-5.3); RED CELL DISTRIBUTION WIDTH 15.1 % (9.6-15.2)
[2017-08-15 12:30] LABS: ALBUMIN 3.9 g/dL (3.4-5.0); ANION GAP 9 mmol/L (5-15); CALCIUM 9.6 mg/dL (8.5-10.1); CHLORIDE 107 mmol/L (98-107)
[2017-08-15 12:37] LABS: ALANINE AMINOTRANSFERASE 44 U/L (12-78); ALKALINE PHOSPHATASE 118 U/L (45-117); BILIRUBIN,TOTAL 0.6 mg/dL (0.2-1.0); CREATININE 0.71 mg/dL (0.55-1.02); TOTAL PROTEIN 8.3 g/dL (6.4-8.2); TROPONIN I < 0.015 ng/mL (0.000-0.045)
[2017-08-15] MEDS ORDERED: ONDANSETRON ODT 4 MG PO ONE (14:00)
[2017-08-15] MEDS ORDERED: MECLIZINE CHEWABLE 25 MG TAB PO ONE (14:00)
[2017-08-15] MEDS ORDERED: ONDANSETRON ODT 4 MG ONE (14:09)
[2017-08-15] MEDS ORDERED: MECLIZINE CHEWABLE 25 MG TAB ONE (14:10)
[2017-08-15] MEDS ORDERED: ASPIRIN 81 MG TABLET CHEW ONE (14:10)
[2017-08-15] MEDS ORDERED: MAALOX/HYOSCYAMINE/LIDOCAINE 45 ML BTL PO ONE (14:30)
[2017-08-15] MEDS ORDERED: MAALOX/HYOSCYAMINE/LIDOCAINE 45 ML BTL ONE (14:34)
== END 2017-08-15 15:04 | disposition home or self-care (01) ==
LOC: ED 14:05
DX: R42 Dizziness and giddiness (principal); R07.89 Other chest pain; I10 Essential (primary) hypertension
CPT/HCPCS: 36415; 71046; 80053; 83690; 84484; 84703; 85025; 93005; 99285; Q0162

== ENCOUNTER 2018-12-31 07:10 | Day surgery (SDC) | payer OTHER ==
[2018-12-26 14:37] VITALS: BP 143/90
[~2018-12-31] VITALS: Ht 182.9 cm; Wt 155.3 kg
[~2018-12-31 07:10] MED LIST changes: +ELAG150T PO; +MELA5TAB14 PO; -MELA5TAB19 PO
[2018-12-31] MEDS ORDERED: LACTATED RINGERS 1,000 ML IV SCH (07:34)
[2018-12-31] MEDS ORDERED: PROPOFOL 10 MG/ML, 20ML ONE (08:31)
[2018-12-31] MEDS ORDERED: OXYcodone 5 MG/5 ML ORAL.SOL UDC ONE ×2 (09:34→10:50)
[2018-12-31] MEDS ORDERED: OXYcodone 5 MG/5 ML ORAL.SOL UDC PO PRN (10:00)
== END 2018-12-31 10:40 | disposition home or self-care (01) ==
LOC: OUT 07:10
PROVIDERS: ATTEND Internal Medicine Gastroenterology
DX: D12.3 Benign neoplasm of transverse colon (principal); K52.9 Noninfective gastroenteritis and colitis, unspecified; K29.50 Unspecified chronic gastritis without bleeding; K64.8 Other hemorrhoids; R47.02 Dysphasia
CPT/HCPCS: 43239; 43248; 45380; 45385; 88305; J2704; J7120

== ENCOUNTER 2019-04-11 07:46 | Emergency (ER) | payer OTHER ==
[~2019-04-11] VITALS: Ht 182.9 cm; Wt 163.6 kg
[2019-04-11 09:19] LABS: BASOPHILS # (AUTO) 0.03 x10^3/uL (0-0.1); BASOPHILS % (AUTO) 0 % (0-1); EOSINOPHILS # (AUTO) 0.29 x10^3/uL (0-0.4); EOSINOPHILS % (AUTO) 3 % (1-7); LYMPHOCYTES # (AUTO) 2.23 x10^3/uL (1-3.4); LYMPHOCYTES % (AUTO) 25 % (22-44); MD NO; MEAN CORPUSCULAR HEMOGLOBIN 27.8 pg (27.0-34.8); MEAN CORPUSCULAR HGB CONC 32.5 g/dL (32.4-35.8); MEAN CORPUSCULAR VOLUME 85.6 fL (80-100); MEAN PLATELET VOLUME 9.4 fL (7.4-10.4); MONOCYTES # (AUTO) 0.64 x10^3/uL (0.2-0.8); MONOCYTES % (AUTO) 7 % (2-9); NEUTROPHILS # (AUTO) 5.73 x10^3/uL (1.8-6.8); NEUTROPHILS % (AUTO) 64 % (42-75); PLATELET COUNT 194 x10^3/uL (130-400); RED BLOOD COUNT 5.58 x10^6/uL (3.82-5.3); RED CELL DISTRIBUTION WIDTH 14.9 % (9.6-15.2)
[2019-04-11 09:31] LABS: ALBUMIN 3.3 g/dL (3.4-5.0); ANION GAP 6 mmol/L (5-15); CALCIUM 8.4 mg/dL (8.5-10.1); CHLORIDE 115 mmol/L (98-107); CREATININE 0.62 mg/dL (0.55-1.02)
[2019-04-11 09:32] LABS: SALICYLATE LEVEL < 1.7 mg/dL (2.8-20.0)
[2019-04-11 09:49] LABS: AMPHETAMINE SCREEN, URINE Negative (Negative); BARBITURATE SCREEN, URINE Negative (Negative); BENZODIAZEPINE SCREEN, URINE Negative (Negative); CANNABINOID SCREEN, URINE Negative (Negative); COCAINE SCREEN, URINE Negative (Negative); METHADONE SCREEN, URINE Negative (Negative); OPIATE SCREEN, URINE Negative (Negative)
--- NOTE | 2019-04-11 10:56 | NUR ---
DARRIUS RN: SOC consult requested, verbal order to place SOC consult from Nimesh SHAIKH
--- NOTE | 2019-04-11 11:37 | NUR ---
TELE PSY INTERVIEW AT THIS TIME
--- NOTE | 2019-04-11 13:09 | NUR ---
AFTER EVAL OF SOC AND HOSPITALIST PT TO BE VOLUNTARY ADMIT
--- NOTE | 2019-04-11 13:59 | NUR ---
TP RN: HERIBERTO Benz has evaluated pt and does not recommend placing pt on legal hold at this time. I have contacted Prema RN in [facility] to inquire about them accepting this pt as a voluntary admission. They are reviewing pt's chart to determine acceptance. If pt is not accepted by [facility], pt will be discharged from ED and given resources to [facility].
[2019-04-11 14:01] VITALS: BP 155/77
[2019-04-11] MEDS ORDERED: IBUPROFEN 600 MG TABLET ONE (14:26)
[2019-04-11] MEDS ORDERED: IBUPROFEN 600 MG TABLET PO ONE (14:30)
--- NOTE | 2019-04-11 14:34 | NUR ---
TP RN: pt accepted by [facility]
[2019-04-11] MEDS ORDERED: MEDR10TA3 PO (16:38)
[2019-04-11] MEDS ORDERED: ESTR1TAB15 PO (16:38)
== END 2019-04-11 16:47 ==
LOC: ED 08:49
DX: F32.9 Major depressive disorder, single episode, unspecified (principal); R45.851 Suicidal ideations; I10 Essential (primary) hypertension
CPT/HCPCS: 36415; 80048; 80307; 82040; 85025; 99284

== ENCOUNTER 2019-04-11 15:06 | Inpatient (IN) | payer OTHER ==
[~2019-04-11] VITALS: Ht 182.9 cm; Wt 160.9 kg
[2019-04-11] MEDS ORDERED: POLYETHYLENE GLYCOL 17 GM PACKET PO PRN (15:30)
[2019-04-11] MEDS ORDERED: BISACODYL 10 MG SUPP PR PRN (15:30)
[2019-04-11] MEDS ORDERED: ONDANSETRON ODT 4 MG PO PRN (15:30)
[2019-04-11] MEDS ORDERED: DOCUSATE 100 MG CAPSULE PO PRN (15:30)
[2019-04-11 16:00] VITALS: BP 128/80
[2019-04-11] MEDS ORDERED: MEDR10TA3 PO (16:38)
[2019-04-11] MEDS ORDERED: ESTR1TAB15 PO (16:38)
[2019-04-11 19:59] VITALS: BP 154/91
[2019-04-12] MEDS: ACETAMINOPHEN 325 MG TABLET PO PRN (05:53)
[2019-04-12 06:44] LABS: CHOL/HDL RATIO 4.5; FREE T4 (FREE THYROXINE) 1.01 ng/dL (0.76-1.46); LDL/HDL RATIO 2.8 (0.5-3.0)
[2019-04-12 07:51] VITALS: BP 120/78
[2019-04-12] MEDS: OMEPRAZOLE 20 MG CAPSULE.DR PO SCH (08:50)
[2019-04-12] MEDS: ESCITALOPRAM 10MG TABLET PO SCH (08:50)
[2019-04-12] MEDS ORDERED: ESCITALOPRAM 10MG TABLET PO SCH (09:00)
[2019-04-12 12:50] LABS: MICROSCOPIC NOT IND
[2019-04-12 12:51] LABS: CULTURE INDICATED? NO
[2019-04-12 19:54] VITALS: BP 124/85
[2019-04-12] MEDS: MELATONIN 5 MG TABLET PO SCH (20:44)
[2019-04-13 07:11] VITALS: BP 123/82
[2019-04-13] MEDS: OMEPRAZOLE 20 MG CAPSULE.DR PO SCH (08:17)
[2019-04-13] MEDS: ESCITALOPRAM 10MG TABLET PO SCH (08:17)
[2019-04-13] MEDS: BUPROPION SR 150 MG TABLET PO SCH (08:17)
[2019-04-13] MEDS ORDERED: PROGESTERONE 100 MG CAPSULE PO SCH (13:00)
[2019-04-13] MEDS: ESTRADIOL 0.5 MG TABLET PO SCH (14:45)
[2019-04-13 19:38] VITALS: BP 124/82
[2019-04-13] MEDS: MELATONIN 5 MG TABLET PO SCH (20:31)
[2019-04-13] MEDS: MECLIZINE 25 MG TABLET PO PRN (20:32)
[2019-04-14 07:40] VITALS: BP 129/87
[2019-04-14] MEDS: ESCITALOPRAM 10MG TABLET PO SCH (08:33)
[2019-04-14] MEDS: ACETAMINOPHEN 325 MG TABLET PO PRN ×2 (08:34→14:29)
[2019-04-14] MEDS: OMEPRAZOLE 20 MG CAPSULE.DR PO SCH (08:34)
[2019-04-14] MEDS: MEDROXYPROGESTERONE ACETATE 5 MG TABLET PO SCH (08:34)
[2019-04-14] MEDS: BUPROPION SR 150 MG TABLET PO SCH (08:34)
[2019-04-14] MEDS: ESTRADIOL 0.5 MG TABLET PO SCH (08:34)
[2019-04-14 19:43] VITALS: BP 128/79
[2019-04-14] MEDS: MELATONIN 5 MG TABLET PO SCH (20:32)
[2019-04-15 07:32] VITALS: BP 138/90
[2019-04-15] MEDS: MEDROXYPROGESTERONE ACETATE 5 MG TABLET PO SCH (08:17)
[2019-04-15] MEDS: ACETAMINOPHEN 325 MG TABLET PO PRN (08:18)
[2019-04-15] MEDS: ESCITALOPRAM 10MG TABLET PO SCH (08:18)
[2019-04-15] MEDS: ESTRADIOL 0.5 MG TABLET PO SCH (08:18)
[2019-04-15] MEDS: BUPROPION SR 150 MG TABLET PO SCH (08:18)
[2019-04-15] MEDS: OMEPRAZOLE 20 MG CAPSULE.DR PO SCH (08:18)
[2019-04-15 19:32] VITALS: BP 152/88
[2019-04-15] MEDS: MELATONIN 5 MG TABLET PO SCH (20:31)
[2019-04-16 07:50] VITALS: BP 142/73
[2019-04-16] MEDS: MEDROXYPROGESTERONE ACETATE 5 MG TABLET PO SCH (09:00)
[2019-04-16] MEDS: ESTRADIOL 0.5 MG TABLET PO SCH (09:00)
[2019-04-16] MEDS: ESCITALOPRAM 10MG TABLET PO SCH (09:00)
[2019-04-16] MEDS: OMEPRAZOLE 20 MG CAPSULE.DR PO SCH (09:00)
[2019-04-16] MEDS: BUPROPION SR 150 MG TABLET PO SCH ×2 (09:00→12:16)
[2019-04-16 19:00] VITALS: BP 115/78
[2019-04-16] MEDS: MELATONIN 5 MG TABLET PO SCH (20:15)
[2019-04-16] MEDS: MECLIZINE 25 MG TABLET PO PRN (20:15)
[2019-04-17 07:41] VITALS: BP 129/76
[2019-04-17] MEDS: MECLIZINE 25 MG TABLET PO PRN (08:36)
[2019-04-17] MEDS: ESCITALOPRAM 10MG TABLET PO SCH (08:36)
[2019-04-17] MEDS: MEDROXYPROGESTERONE ACETATE 5 MG TABLET PO SCH (08:36)
[2019-04-17] MEDS: ESTRADIOL 0.5 MG TABLET PO SCH (08:36)
[2019-04-17] MEDS: OMEPRAZOLE 20 MG CAPSULE.DR PO SCH (08:36)
[2019-04-17] MEDS: BUPROPION SR 150 MG TABLET PO SCH ×2 (08:38→12:28)
[2019-04-17 19:44] VITALS: BP 144/82
[2019-04-17] MEDS: MELATONIN 5 MG TABLET PO SCH (20:34)
[2019-04-18 07:31] VITALS: BP 109/65
[2019-04-18] MEDS: BUPROPION SR 150 MG TABLET PO SCH ×2 (08:42→13:35)
[2019-04-18] MEDS: OMEPRAZOLE 20 MG CAPSULE.DR PO SCH (08:42)
[2019-04-18] MEDS: ESCITALOPRAM 10MG TABLET PO SCH (08:42)
[2019-04-18] MEDS: MEDROXYPROGESTERONE ACETATE 5 MG TABLET PO SCH (08:42)
[2019-04-18] MEDS: ESTRADIOL 0.5 MG TABLET PO SCH (08:42)
[2019-04-18] MEDS ORDERED: ESCI10TA PO (13:31)
[2019-04-18] MEDS ORDERED: BUPR150T73 PO (13:31)
[2019-04-18] MEDS ORDERED: MELA5TAB14 PO (13:31)
[2019-04-18] MEDS ORDERED: TRAM50TA2 PO (13:31)
== END 2019-04-18 14:45 | disposition home or self-care (01) | DRG 885 ==
LOC: 3E 15:52
PROVIDERS: ADMIT Psychiatry & Neurology Psychosomatic Medicine; ATTEND Psychiatry & Neurology Psychosomatic Medicine
DX: F33.2 Major depressive disorder, recurrent severe without psychotic features (principal); Z68.42 Body mass index [BMI] 45.0-49.9, adult; E28.2 Polycystic ovarian syndrome; E28.319 Asymptomatic premature menopause; E66.9 Obesity, unspecified; F41.9 Anxiety disorder, unspecified; G43.909 Migraine, unspecified, not intractable, without status migrainosus; G47.00 Insomnia, unspecified; G89.29 Other chronic pain; K21.9 Gastro-esophageal reflux disease without esophagitis; Z79.890 Hormone replacement therapy; Z80.8 Family history of malignant neoplasm of other organs or systems; Z82.49 Family history of ischemic heart disease and other diseases of the circulatory system; Z90.710 Acquired absence of both cervix and uterus; Z90.89 Acquired absence of other organs; Z90.49 Acquired absence of other specified parts of digestive tract; Z90.722 Acquired absence of ovaries, bilateral
CPT/HCPCS: 36415; 71045; 80061; 81003; 82140; 84439; 84443; 93005

== ENCOUNTER 2019-05-09 12:03 | Emergency (ER) | payer OTHER ==
[~2019-05-09] VITALS: Ht 182.9 cm; Wt 159.3 kg
[~2019-05-09 12:03] MED LIST changes: +BUPR150T73 PO; +ESCI10TA PO; +ESTR1TAB15 PO; +MEDR10TA3 PO; +TRAM50TA2 PO
[2019-05-09 12:05] VITALS: BP 154/96
--- NOTE | 2019-05-09 12:30 | NUR ---
this is a 34 year old female that presents to ed with . she has had a recent stay at [facility] and d/c'd with meds. pt states stress at home has increased and she has suffered the loss of a close friend. pt is having continuous thoughts of suicide with plan in place. room secured. belongings in locker with label
[2019-05-09 13:03] LABS: BASOPHILS % (AUTO) 0 % (0-1); EOSINOPHILS # (AUTO) 0.21 x10^3/uL (0-0.4); EOSINOPHILS % (AUTO) 2 % (1-7); LYMPHOCYTES # (AUTO) 2.38 x10^3/uL (1-3.4); LYMPHOCYTES % (AUTO) 28 % (22-44); MD NO; MEAN CORPUSCULAR HEMOGLOBIN 28.3 pg (27.0-34.8); MEAN CORPUSCULAR HGB CONC 32.3 g/dL (32.4-35.8); MEAN CORPUSCULAR VOLUME 87.4 fL (80-100); MEAN PLATELET VOLUME 10.8 fL (7.4-10.4); MONOCYTES % (AUTO) 7 % (2-9); NEUTROPHILS # (AUTO) 5.38 x10^3/uL (1.8-6.8); NEUTROPHILS % (AUTO) 63 % (42-75); PLATELET COUNT 182 x10^3/uL (130-400); RED BLOOD COUNT 5.61 x10^6/uL (3.82-5.3); RED CELL DISTRIBUTION WIDTH 14.5 % (9.6-15.2)
[2019-05-09 13:14] LABS: ALBUMIN 3.5 g/dL (3.4-5.0); ANION GAP 9 mmol/L (5-15); CALCIUM 8.4 mg/dL (8.5-10.1); CHLORIDE 111 mmol/L (98-107); CREATININE 0.76 mg/dL (0.55-1.02)
[2019-05-09 13:16] LABS: AMPHETAMINE SCREEN, URINE Negative (Negative); BARBITURATE SCREEN, URINE Negative (Negative); BENZODIAZEPINE SCREEN, URINE Negative (Negative); CANNABINOID SCREEN, URINE Negative (Negative); COCAINE SCREEN, URINE Negative (Negative); METHADONE SCREEN, URINE Negative (Negative); OPIATE SCREEN, URINE Negative (Negative)
[2019-05-09 13:17] LABS: SALICYLATE LEVEL < 1.7 mg/dL (2.8-20.0)
--- NOTE | 2019-05-09 14:01 | NUR ---
PT RESTING ON GURNEY, AWAITING EVAL OF NALINI HARKINS PER RENETTA. AT BEDSIDE, THIS IS CALMING FOR PT.
--- NOTE | 2019-05-09 15:21 | NUR ---
PT CONTINUES TO REST ON GURNEY, DENIES NEEDS AT THIS TIME. GIVEN ICE WATER PER REQUEST. NAD NOTED
--- NOTE | 2019-05-09 16:29 | NUR ---
TORIN HORNERN IN TO EVAL PT, DINNER TRAY ORDERED FOR PT.
--- NOTE | 2019-05-09 17:18 | NUR ---
LEGAL HOLD DC'D, PT AND SPOUSE GIVEN DC INTRUCTIONS INCLUDING [employer]. PT GIVEN ALL BELONGINGS BACK TO PT, PT VERIFIED RECEIPT OF BELONGINGS. PT DISCHARGED IN CARE OF IN STABLE CONDITION
== END 2019-05-09 17:30 | disposition home or self-care (01) ==
LOC: ED 12:56
DX: F32.0 Major depressive disorder, single episode, mild (principal); F41.1 Generalized anxiety disorder; I10 Essential (primary) hypertension; Z90.49 Acquired absence of other specified parts of digestive tract; Z90.710 Acquired absence of both cervix and uterus
CPT/HCPCS: 36415; 80048; 80307; 82040; 85025; 99284

== ENCOUNTER 2020-08-27 13:00 | Emergency (ER) | payer OTHER ==
[~2020-08-27] VITALS: Ht 182.9 cm; Wt 167.5 kg
[~2020-08-27 13:00] MED LIST changes: -ESCI10TA PO; +ESCI10TA97 PO; +HYDR-1067 PO; -HYDR-3240 PO
[2020-08-27] MEDS ORDERED: ONDANSETRON 2MG/ML, 2ML IVPush ONE (13:30)
[2020-08-27 14:02] LABS: BASOPHILS % (AUTO) 1 % (0-1); EOSINOPHILS % (AUTO) 3 % (1-7); LYMPHOCYTES % (AUTO) 34 % (22-44); MD NO; MEAN CORPUSCULAR HEMOGLOBIN 28.2 pg (27.0-34.8); MEAN CORPUSCULAR HGB CONC 33.9 g/dL (32.4-35.8); MONOCYTES % (AUTO) 7 % (2-9); NEUTROPHILS % (AUTO) 56 % (42-75); PLATELET COUNT 167 x10^3/uL (130-400); RED BLOOD COUNT 5.45 x10^6/uL (3.82-5.3)
[2020-08-27 14:10] LABS: ALANINE AMINOTRANSFERASE 82 U/L (12-78); ALBUMIN 3.6 g/dL (3.4-5.0); ANION GAP 3 mmol/L (5-15); CALCIUM 9.1 mg/dL (8.5-10.1); CHLORIDE 115 mmol/L (98-107); CREATININE 0.57 mg/dL (0.55-1.02)
[2020-08-27 14:17] LABS: ALKALINE PHOSPHATASE 115 U/L (45-117); BILIRUBIN,TOTAL 0.4 mg/dL (0.2-1.0); TOTAL PROTEIN 6.8 g/dL (6.4-8.2)
[2020-08-27] MEDS ORDERED: ONDANSETRON 2MG/ML, 2ML ONE (14:22)
--- NOTE | 2020-08-27 14:28 | NUR ---
TASK RN: IV ACCESS OBTAINED. PT MEDICATED PER JUL.
[2020-08-27 14:29] LABS: MICROSCOPIC INDICATED
[2020-08-27 16:41] VITALS: BP 133/83
--- NOTE | 2020-08-27 16:47 | NUR ---
PT REC'VD DISCHARGE INSTRUCTIONS AND EDUCATION. PT HAD NO FURTHER QUESTINOS. PT AMBULATED TO DC AREA, STEADY GAIT.
== END 2020-08-27 17:03 | disposition home or self-care (01) ==
LOC: ED 16:45
DX: N30.00 Acute cystitis without hematuria (principal); R11.2 Nausea with vomiting, unspecified; I10 Essential (primary) hypertension; M54.5 Low back pain; Z90.89 Acquired absence of other organs; Z90.49 Acquired absence of other specified parts of digestive tract; Z90.710 Acquired absence of both cervix and uterus
CPT/HCPCS: 36415; 71045; 80053; 81001; 83690; 85025; 87086; 93005; 96374; 99285; J2405